=== PATIENT | female | born 1995 | race Caucasian/White ===

== ENCOUNTER 2020-11-30 22:13 | Emergency (ER) | payer OTHER ==
[2020-11-30 22:16] VITALS: BP 128/78; PULSE 105; TEMP 97; BMI 25.0
== END 2020-12-01 00:46 | disposition home or self-care (01) ==
LOC: JER 22:13
PROC: 0HQGXZZ Repair Left Hand Skin, External Approach (ICD-10-PCS; principal; 2020-11-30)
DX: S61.412A Laceration without foreign body of left hand, initial encounter (principal); W26.0XXA Contact with knife, initial encounter; Y28.1XXA Contact with knife, undetermined intent, initial encounter; Y93.G1 Activity, food preparation and clean up
CPT/HCPCS: 99282-25

== ENCOUNTER 2021-11-27 13:03 | Emergency (ER) | payer OTHER ==
[2021-11-27 13:13] VITALS: BP 116/72; PULSE 82; RESP 18; TEMP 98.3; BMI 26.6
[2021-11-27] MEDS ORDERED: KETOROLAC TROMETHAMINE 30 MG/1 ML VIAL IM ONE (14:00)
[2021-11-27] MEDS ORDERED: METHOCARBAMOL 500 MG TABLET PO ONE (14:00)
[2021-11-27] MEDS ORDERED: METHOCARBAMOL 500 MG TABLET ONE (14:01)
[2021-11-27] MEDS ORDERED: KETOROLAC TROMETHAMINE 30 MG/1 ML VIAL ONE ×2 (14:01→14:02)
== END 2021-11-27 14:57 | disposition home or self-care (01) ==
LOC: JER 13:03
PROC: 3E0233Z Introduction of Anti-inflammatory into Muscle, Percutaneous Approach (ICD-10-PCS; principal; 2021-11-27)
DX: G44.209 Tension-type headache, unspecified, not intractable (principal)
CPT/HCPCS: 93005; 93010; 99284-25

== ENCOUNTER 2022-11-13 13:58 | Emergency (ER) | payer OTHER ==
[2022-11-13 14:08] VITALS: BMI 27.4
[2022-11-13 16:09] LABS: PH,URINE 6.5 (5.0-8.0); URINE APPEARANCE CLEAR; URINE BILIRUBIN NEGATIVE (NEGATIVE); URINE COLOR YELLOW; URINE GLUCOSE (UA) NEGATIVE (NEGATIVE); URINE KETONE NEGATIVE (NEGATIVE); URINE LEUK ESTERASE NEGATIVE (NEGATIVE); URINE NITRITE NEGATIVE (NEGATIVE); URINE PROTEIN NEGATIVE (NEGATIVE); URINE UROBILINOGEN 0.2 mg/dL (0.2-1.0)
[2022-11-13 16:11] LABS: HCG,QUALITATIVE URINE Negative
[2022-11-13] MEDS ORDERED: ACETAMINOPHEN 500 MG TABLET (FP) PO ONE (17:25)
[2022-11-13] MEDS ORDERED: ACETAMINOPHEN 500 MG TABLET (FP) ONE (17:28)
[2022-11-13 19:22] VITALS: BP 119/68; PULSE 83; RESP 17; TEMP 98.5
== END 2022-11-13 20:43 | disposition home or self-care (01) ==
LOC: JER 13:58
DX: R10.2 Pelvic and perineal pain (principal); N83.202 Unspecified ovarian cyst, left side
CPT/HCPCS: 36415; 76856-TC; 81003; 84703; 87086; 87186; 87491; 87591; 99284-25

== ENCOUNTER 2023-05-18 11:28 | Emergency (ER) | payer BC ==
[2023-05-18 11:50] VITALS: BMI 25.0
[2023-05-18 12:47] LABS: EPI CELLS 28 /uL (0-25.1); HYALINE CASTS 0 /uL (0-3.1); PH,URINE 5.5 (5.0-8.0); URINE APPEARANCE CLEAR; URINE BACTERIA 58 /uL (0-1359); URINE BILIRUBIN NEGATIVE (NEGATIVE); URINE COLOR YELLOW; URINE GLUCOSE (UA) NEGATIVE (NEGATIVE); URINE KETONE NEGATIVE (NEGATIVE); URINE LEUK ESTERASE NEGATIVE (NEGATIVE); URINE NITRITE NEGATIVE (NEGATIVE); URINE PROTEIN NEGATIVE (NEGATIVE); URINE RBC 12 /uL (0-23.9); URINE UROBILINOGEN 0.2 mg/dL (0.2-1.0); URINE WBC 3 /uL (0-25.8)
[2023-05-18 12:52] LABS: BASO % 1.1 % (0-2.0); EOS % 2.5 % (0-4.5); HEMATOCRIT 40.7 % (32.4-45.2); HEMOGLOBIN 13.2 GM/dL (10.7-15.3); LYMPH % 16.9 % (8-40); MCH 27.2 pg (25.7-33.7); MCHC 32.5 g/dl (32.0-36.0); MEAN CELL VOLUME 83.9 fl (80-96); MEAN PLT VOLUME 8.5 fl (7.5-11.1); MONO % 6.4 % (3.8-10.2); NEUT % 73.1 % (42.8-82.8); PLATELET COUNT 294 10^3/uL (134-434); RBC 4.85 M/mm3 (3.60-5.2); RDW 14.3 % (11.6-15.6); WHITE BLOOD COUNT 13.9 K/mm3 (4.0-10.0)
[2023-05-18 13:12] LABS: POTASSIUM 4.1 mmol/L (3.5-5.1)
[2023-05-18 13:14] LABS: ALBUMIN 3.7 g/dl (3.4-5.0); BLOOD UREA NITROGEN 10.3 mg/dL (7-18); CALCIUM 9.2 mg/dL (8.5-10.1)
[2023-05-18 13:17] LABS: CREATININE 0.6 mg/dL (0.55-1.3)
[2023-05-18 13:19] LABS: BILIRUBIN,TOTAL 0.4 mg/dL (0.2-1); TOT PROT 8.2 g/dl (6.4-8.2)
[2023-05-18] MEDS ORDERED: ACETAMINOPHEN INJECTION 100 ML IVPB ONE (15:23)
[2023-05-18] MEDS: ACETAMINOPHEN 1000 MG/100 ML BAG IVPB ONE (15:30)
[2023-05-18 18:20] VITALS: BP 115/71; PULSE 81; RESP 18; TEMP 98.1
== END 2023-05-18 18:20 | disposition home or self-care (01) ==
LOC: JER 11:28 → JERFT 11:28
PROC: 3E033NZ Introduction of Analgesics, Hypnotics, Sedatives into Peripheral Vein, Percutaneous Approach (ICD-10-PCS; principal; 2023-05-18)
DX: R10.32 Left lower quadrant pain (principal); N83.201 Unspecified ovarian cyst, right side; N83.202 Unspecified ovarian cyst, left side
CPT/HCPCS: 36415; 74177-TC; 76817-TC; 80053; 81003; 83690; 84702; 84703; 85025; 87086; 87491; 87591; 87661; 99285-25; J0131; Q9967

== ENCOUNTER 2023-07-11 19:05 | Emergency (ER) | payer BC ==
[2023-07-11 19:25] VITALS: BP 110/69; PULSE 92; RESP 20; TEMP 98.7; BMI 26.6
[2023-07-11] MEDS ORDERED: ACETAMINOPHEN 500 MG TABLET (FP) ONE (21:16)
[2023-07-11] MEDS: ACETAMINOPHEN 500 MG TABLET (FP) PO ONE (21:18)
[2023-07-11 21:28] LABS: PH,URINE 7.5 (5.0-8.0); URINE APPEARANCE CLEAR; URINE BILIRUBIN NEGATIVE (NEGATIVE); URINE COLOR YELLOW; URINE GLUCOSE (UA) NEGATIVE (NEGATIVE); URINE KETONE NEGATIVE (NEGATIVE); URINE LEUK ESTERASE NEGATIVE (NEGATIVE); URINE NITRITE NEGATIVE (NEGATIVE); URINE PROTEIN NEGATIVE (NEGATIVE)
[2023-07-11] MEDS ORDERED: KETOROLAC TROMETHAMINE 15 MG/ML VIAL ONE (22:44)
[2023-07-11] MEDS: LACTATED RINGERS SOLUTION 1000 ML INFUS.BAG IV ONE (22:49)
[2023-07-11] MEDS: KETOROLAC TROMETHAMINE 15 MG/ML VIAL IVPUSH ONE (22:49)
[2023-07-11 23:08] LABS: BASO % 0.7 % (0-2.0); EOS % 3.2 % (0-4.5); HEMATOCRIT 39.1 % (32.4-45.2); HEMOGLOBIN 12.8 GM/dL (10.7-15.3); LYMPH % 22.4 % (8-40); MCH 27.6 pg (25.7-33.7); MCHC 32.8 g/dl (32.0-36.0); MEAN CELL VOLUME 84.2 fl (80-96); MEAN PLT VOLUME 8.6 fl (7.5-11.1); MONO % 6.9 % (3.8-10.2); NEUT % 66.8 % (42.8-82.8); PLATELET COUNT 349 10^3/uL (134-434); RBC 4.65 M/mm3 (3.60-5.2); RDW 13.3 % (11.6-15.6); WHITE BLOOD COUNT 14.4 K/mm3 (4.0-10.0)
[2023-07-11 23:45] LABS: POTASSIUM 4.8 mmol/L (3.5-5.1)
[2023-07-11 23:47] LABS: ALBUMIN 3.6 g/dl (3.4-5.0); BLOOD UREA NITROGEN 11.8 mg/dL (7-18)
[2023-07-11 23:50] LABS: CREATININE 0.6 mg/dL (0.55-1.3)
[2023-07-11 23:52] LABS: BILIRUBIN,TOTAL 0.2 mg/dL (0.2-1); TOT PROT 7.6 g/dl (6.4-8.2)
== END 2023-07-12 03:20 | disposition home or self-care (01) ==
LOC: JER 19:05
PROC: 3E0333Z Introduction of Anti-inflammatory into Peripheral Vein, Percutaneous Approach (ICD-10-PCS; principal; 2023-07-11)
DX: R10.32 Left lower quadrant pain (principal); D72.829 Elevated white blood cell count, unspecified; R59.9 Enlarged lymph nodes, unspecified; N39.0 Urinary tract infection, site not specified; Z20.822 Contact with and (suspected) exposure to COVID-19
CPT/HCPCS: 0241U-QW; 36415; 74177-TC; 76830-TC; 80053; 81003; 84703; 85025; 87086; 87491; 87591; 87651; 87661; 99285-25; Q9967

== ENCOUNTER 2024-01-23 10:49 | Emergency (ER) | payer BC ==
[2024-01-23 10:56] VITALS: BP 118/77; PULSE 88; RESP 18; TEMP 98.4; BMI 25.0
[2024-01-23] MEDS ORDERED: IBUPROFEN 600 MG TABLET (FP) PO ONE (13:09)
[2024-01-23] MEDS: IBUPROFEN 600 MG TABLET (FP) PO ONE (13:11)
[2024-01-23] MEDS: MAG HYDROX/ALH/SMC/DPHA/LIDO 240 ML MOUTHWASH MM ONE (13:21)
== END 2024-01-23 13:35 | disposition home or self-care (01) ==
LOC: JERFT 10:49
DX: R51.9 Headache, unspecified (principal); B34.9 Viral infection, unspecified; R05.9 Cough, unspecified; R50.9 Fever, unspecified; R07.9 Chest pain, unspecified; R59.9 Enlarged lymph nodes, unspecified; Z20.822 Contact with and (suspected) exposure to COVID-19
CPT/HCPCS: 0241U-QW; 87651; 99283-25

== ENCOUNTER 2024-01-24 20:39 | Emergency (ER) | payer BC ==
[2024-01-24 20:47] VITALS: BP 127/85; PULSE 82; RESP 18; TEMP 97.9; BMI 25.0
== END 2024-01-24 22:04 | disposition left against medical advice (07) ==
LOC: JERFT 20:39
DX: Z53.21 Procedure and treatment not carried out due to patient leaving prior to being seen by health care provider (principal)
CPT/HCPCS: 99281-25

== ENCOUNTER 2024-02-08 11:59 | Emergency (ER) | payer BC ==
[2024-02-08 12:29] VITALS: BP 102/68; PULSE 77; RESP 18; TEMP 98.6; BMI 29.9
[2024-02-08 13:36] LABS: BASO % 0.6 % (0-2.0); EOS % 4.5 % (0-4.5); HEMATOCRIT 39.6 % (32.4-45.2); HEMOGLOBIN 13.3 GM/dL (10.7-15.3); LYMPH % 26.9 % (8-40); MCH 27.7 pg (25.7-33.7); MCHC 33.6 g/dl (32.0-36.0); MEAN CELL VOLUME 82.4 fl (80-96); MEAN PLT VOLUME 8.5 fl (7.5-11.1); MONO % 6.4 % (3.8-10.2); NEUT % 61.6 % (42.8-82.8); PLATELET COUNT 269 10^3/uL (134-434); RBC 4.81 M/mm3 (3.60-5.2); RDW 13.1 % (11.6-15.6); WHITE BLOOD COUNT 9.4 K/mm3 (4.0-10.0)
[2024-02-08 14:14] LABS: POTASSIUM 4.6 mmol/L (3.5-5.1)
[2024-02-08 14:18] LABS: CALCIUM 9.2 mg/dL (8.5-10.1)
[2024-02-08 14:19] LABS: BLOOD UREA NITROGEN 7.6 mg/dL (7-18); MAGNESIUM 1.9 mg/dL (1.8-2.4)
[2024-02-08 14:20] LABS: ALBUMIN 3.7 g/dl (3.4-5.0)
[2024-02-08 14:22] LABS: CREATININE 0.5 mg/dL (0.55-1.3)
[2024-02-08 14:23] LABS: BILIRUBIN,TOTAL 0.4 mg/dL (0.2-1); TOT PROT 7.6 g/dl (6.4-8.2)
== END 2024-02-08 14:50 | disposition home or self-care (01) ==
LOC: JER 11:59
DX: M54.2 Cervicalgia (principal); M79.604 Pain in right leg; R51.9 Headache, unspecified
CPT/HCPCS: 36415; 70450-TC; 72125-TC; 80053; 83735; 84439; 84443; 85025; 99284-25